=== PATIENT | female | born 1995 | race Caucasian/White ===

== ENCOUNTER 2017-11-06 18:51 | Emergency (ER) | payer OTHER ==
[2017-11-06 21:01] VITALS: BP 113/79
[2017-11-06] MEDS ORDERED: hydrOXYzine HCL TAB* 25 MG PO ONE ×2 (22:14→22:31)
--- NOTE | 2017-11-06 22:16 | UC ---
Headache HPI - HPI Summary HPI Summary: 22 y/o female presents to the urgent care c/o insomnia for the past week. Pt reports she has Hx of Migraine HAs. She thinks the Insomnia is triggering her CROSS. Cross now is mild 12/30. She has tried not to watch TV or her cell after 10pm, but still she can't fall sleep until 0400AM. Then she falls sleep and wakes up at 1000Am and she misses School. She request a note for School. Pt also states she had Hx of anxiety and depression which has been control for the past 3 years. She has taking Aleve PM which worked for 2 days, but she thinks something stronger that helps her to sleep. Pt denies dizziness, fever, neck pain, photophobia,SOB, chest pain, abdominal pain, N/V/D, depression symptoms, suicidal or homicidal ideations. - History Of Current Complaint Chief Complaint: UCHeadache Stated Complaint: INSOMNIA,HEADACHES Time Seen by Provider: 11/06/17 21:52 Hx Obtained From: Patient Hx Last Menstrual Period: 10/25/17 ?: No Onset/Duration: Gradual Onset, Lasting Weeks - 1 week, Still Present Onset Of Symptoms: Gradual Initially Headache Was: Mild Currently Pain Is: Mild Pain Intensity: 4 Pain Scale Used: 0-10 Numeric Timing: Minutes - 30-45min Character: Dull, Migraine Location of Headache: Other: - RT side Aggravating Factor(s): Other - insomnia Allevating Factor(s): Medication Associated Signs And Symptoms: Negative: Dizziness, Nausea, Vomiting, Sinus Pressure, Fever, Neck Pain, Neck Stiffness, Visual Changes - Risk Factors SAH Risk Factors: Negative Meningitis Risk Factors: Negative SDH Risk Factors: Negative Temporal Arteritis Risk Factors: Negative - Allergies/Home Medications Allergies/Adverse Reactions: Allergies Allergy/AdvReac Type Severity Reaction Status Date / Time amoxicillin [From Augmentin] Allergy Severe Rash Verified 11/06/17 20:42 clavulanic acid Allergy Severe Rash Verified 11/06/17 20:42 [From Augmentin] Home Medications: Home Medications Nuva Ring 1 unit VAGINAL SEE INSTRUCTIONS 11/06/17 [History Confirmed 11/06/17] PMH/Surg Hx/FS Hx/Imm Hx Previously Healthy: Yes Neurological History: Migraine Psychological History: Anxiety - Surgical History Surgical History: Yes Surgery Procedure, Year, and Place: b/l ear tubes x 3 sets, t/a, wisdom teeth, caninetooth,2 ganglion cysts - Family History Known Family History: Positive: Hypertension Family History: Depression - Social History Occupation: Student Lives: With Family Alcohol Use: Weekly Alcohol Amount: 5 Substance Use Type: None Smoking Status (MU): Never Smoked Tobacco Type: eCigarettes - Immunization History Vaccination Up to Date: Yes Review of Systems Constitutional: Fatigue, Other - lack of sleep Skin: Negative Eyes: Negative ENT: Negative Respiratory: Negative Cardiovascular: Negative Gastrointestinal: Negative Genitourinary: Negative Motor: Negative Neurovascular: Negative Musculoskeletal: Negative Neurological: Headache Psychological: Negative Is Patient Immunocompromised?: No All Other Systems Reviewed And Are Negative: Yes Physical Exam Triage Information Reviewed: Yes Vital Signs: Initial Vital Signs Temp 97.8 F 11/06/17 20:49 Pulse 87 11/06/17 20:49 Resp 18 11/06/17 20:49 BP 113/79 11/06/17 20:49 Pulse Ox 98 11/06/17 20:49 - Additional Comments Vital Signs Reviewed: Yes General: well developed, well nourished female adolescent sitting in the examining w/o any apparent distress. Eyes: Positive: Conjunctiva Clear - -Eyes: sclera and conjunctiva clear, corneas grossly clear, PEERLA, EOMI, no nystagmus, no ptosis,no photophobia, normal fundoscopic exam, normal visual ramírez,, Other: - -Head:scalp atraumatic , NT, no trigger points ENT: Positive: Normal ENT inspection, Hearing grossly normal, Pharynx normal, TMs normal - B/L external ear canals clear, Other: - No TMJ tenderness. Negative: Nasal congestion, Nasal drainage, Tonsillar swelling, Tonsillar exudate Dental Exam: Normal Neck: Positive: Supple, Nontender, No Lymphadenopathy Respiratory: Positive: Chest non-tender, Lungs clear, Normal breath sounds, No respiratory distress Cardiovascular: Positive: RRR, No Murmur, Pulses Normal, Brisk Capillary Refill Abdomen Description: Positive: Nontender, No Organomegaly, Soft. Negative: CVA Tenderness (R), CVA Tenderness (L) Bowel Sounds: Positive: Present Musculoskeletal: Positive: Strength Intact, ROM Intact, No Edema Neurological: Positive: Alert - A&OX3, CNII-XII WNL, speech, memory and expression WNL,, Muscle Tone Normal - Muscle strength 5/5 in both upper and lower extremities. Normal gait, negative Romberg test and good coordination finger to nose, heel to riddle WNL, sensation intact. Reflexes WNL Psychological Exam: Normal Skin: Positive: warm and dry , no rashes or petechiae observed Headache Course/Dx - Course Course Of Treatment: 22 y/o female presents to the urgent care c/o insomnia for the past week. Pt reports she has Hx of Migraine HAs. She thinks the Insomnia is triggering her CROSS. Cross now is mild 4/10. She has tried not to watch TV or her cell after 10pm, but still she can't fall sleep until 0400AM. Then she falls sleep and wakes up at 1000Am and she misses School. She request a note for School. Pt also states she had Hx of anxiety and depression which has been control for the past 3 years. She has taking Aleve PM which worked for 2 days, but she thinks something stronger that helps her to sleep. Pt denies dizziness , fever, neck pain, photophobia, SOB, chest pain, abdominal pain, N/V/D, depression symptoms, suicidal or homicidal ideations. Hx obtained. PE: WNL. Pt RX Atarax 50mg PO qd for insomnia and Ibuprofen for CROSS. Pt educated on Sleep hygiene and Strongly advised to f/u w/ her PCP for further evaluation and treatment on Insomnia. Pt dispensed first dose at the clinic. DR Keating consulted on Pt's symptoms and he agreed w/ plan of care. Pt left the clinic ambulating A&OX3 - Differential Dx/Diagnosis Differential Diagnosis/HQI/PQRI: Migraine, Sinus Headache, Tension Headache, Viral Syndrome, Other - insomnia, anxiety Provider Diagnoses: 1- Headache. 2- Insomnia - Physician Notifications Discussed Patient Care With: Lisandro Keating - DR Keating agreed w/ Pt's plan of care Discharge - Discharge Plan Condition: Stable Disposition: HOME Prescriptions: hydrOXYzine HCL TAB* [Atarax TAB 50 MG *] 50 mg PO BEDTIME PRN #15 tab PRN Reason: Insomnia Ibuprofen TAB* [Motrin TAB* 800 MG] 800 mg PO Q6H PRN #30 tab PRN Reason: Headache Patient Education Materials: Acute Headache (ED), Insomnia (ED) Forms: *School Release Referrals: [facility] [Outside] - 2 Days Additional Instructions: 1-Take ibuprofen PO after meals to alleviate Headache. Take Atarax PO for the Insomnia. Start Sleep hygiene as explained on instruction 2-Please f/u with a PCP from the [facility] [place] [facility] for further evaluation and treatment on your Insomnia 3-If you develop severe headache with dizziness, visual disturbances or any neurological deficit or you feel depresses w/ suicidal or homicidal ideations go immediately to the ER or call 911 for further treatment.
== END 2017-11-06 22:45 | disposition home or self-care (01) ==
LOC: UCCORT 18:51
DX: R51 Headache (principal); G47.00 Insomnia, unspecified; F41.9 Anxiety disorder, unspecified; Z88.1 Allergy status to other antibiotic agents
CPT/HCPCS: 99202; A9270-GY; G0463